=== PATIENT | female | born 1930 | race African-American/Black ===

== ENCOUNTER 2016-10-22 17:22 | Emergency (ER) | payer MEDICARE, BC ==
[~2016-10-22] VITALS: Ht 170.2 cm; Wt 71.3 kg
[~2016-10-22 17:22] MED LIST: ALPR.25 PO; APIX2.5T PO; ASPI1TAB69 PO; ASPI325T PO; CARV12.52 PO; CARV6.25 PO; CINA30 PO; CLON.1 PO; DOCU100C PO; ECOT81TA2 PO; LISI-363 PO; LORTA5 PO; MEGE40SU PO; METO100T9 PO; NEPHTAB3 PO; NEXI40CA PO; NITR2OIN CHEST; PLAV75TA29 PO; SEVEL800 PO; SYNT50TA PO; THERTAB17 PO; TRAM-492 PO; TRAV0.00 EACH EYE; VIIB20TA PO
[2016-10-22] MEDS ORDERED: SODIUM CHLORIDE 0.9% FLUSH 10 ML FLUSH IVF PRN (18:00)
--- NOTE | 2016-10-22 18:01 | PD ---
HPI Chief Complaint: Abnormal Results Time Seen by Provider: 18:01 Travel History International Travel<30 days: No Contact w/Intl Traveler<30days: No Traveled to known affect area: No History of Present Illness HPI 86-year-old elderly female presents to the emergency department for evaluation of low hemoglobin. The patient was sent from her nursing facility for low hemoglobin found at her dialysis yesterday. Patient had recent admission to the hospital in September. She did have a low hemoglobin at that time is felt to be anemia of chronic disease according to the notes. Hemoglobin is 5.6 according to paperwork. The patient reports mild shortness of breath, but denies any other complaints. She is pleasantly confused. The patient is on dialysis for chronic kidney disease. She denies any fevers or chills. No headache. No chest pain. No abdominal pain. No nausea, vomiting, diarrhea. Patient denies any rectal bleeding or dark tarry stools. PFSH Past Medical History Anemia: Yes Arthritis: Yes Asthma: No Blood Disorders: No Anxiety: Yes Depression: Yes Heart Rhythm Problems: Yes Cancer: No Cardiac Catheterization: Yes (X3) Cardiovascular Problems: Yes High Cholesterol: No Chest Pain: Yes Congestive Heart Failure: Yes COPD: No Coronary Artery Disease: Yes Diabetes: No Endocrine: No Gastrointestinal Disorders: Yes (HEART BURN) GERD: Yes Genitourinary: Yes (ESRD - ON DIALYSIS) Hypertension: Yes Immune Disorder: No Implanted Vascular Access Dvce: Yes Musculoskeletal: Yes (LEFT HIP) Neurologic: Yes Psychiatric: Yes Reproductive: No Respiratory: No Integumentary: Yes (CELLULITIS L ARM) Immunizations Current: Yes Migraines: Yes Pneumonia: Yes Renal Failure: Yes Sleep Apnea: Yes (HAD CPAP IN PAST) Thyroid Disease: No Influenza Vaccination: Yes ?: Not : 4 Para: 0 Past Surgical History Abdominal Surgery: Yes Appendectomy: Yes Arteriovenous Shunt: Yes (RUE) Body Medical Devices: 3 CARDIAC STENTS, KIDNEY STENT, HX R CHEST DIALYSIS CATH Coronary Stent: Yes (X3) Eye Surgery: Yes (L CATARACT REMOVED) Genitourinary Surgery: Yes (STONES REMOVED, L KIDNEY STENT X3) Gynecologic Surgery: Yes (HYSTERECTOMY, KIDNEY STONE REMOVAL) Hysterectomy: Yes Joint Replacement: Yes (BILAT TOTAL HIP, BILAT TOTAL KNEE) Oral Surgery: Yes Tonsillectomy: Yes Other Surgery: Yes Social History Alcohol Use: Yes (RARE) Tobacco Use: No (QUIT 45 YEARS AGO) Substance Use: No Allergies-Medications (Allergen,Severity, Reaction): Coded Allergies: Dilaudid (Verified Allergy, Severe, ANAPHYLACTIC, 08/17/16) Morphine (Verified Allergy, Severe, ANAPHYLACTIC, 08/17/16) *MDRO Multi-Drug Resistant Organism (Verified Adverse Reaction, Unknown, ) 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 Reported Meds & Prescriptions Reported Meds & Active Scripts Active Plavix (Clopidogrel Bisulfate) 75 Mg Tab 75 Mg PO DAILY Reported Xanax (Alprazolam) 0.25 Mg Tab 0.25 Mg PO BID Xanax (Alprazolam) 0.25 Mg Tab 0.25 Mg PO Q4H PRN Ultram (Tramadol HCl) 50 Mg Tab 50 Mg PO BID Nitro-Bid Topical (Nitroglycerin) 2 % Oint 2 Inch CHEST Q6H Nephro-Shelbie (B-Complex W/ C & Folic Acid) 1 Tab 1 Tab PO DAILY Renvela (Sevelamer Carbonate) 800 Mg Tab 800 Mg PO TID Carvedilol 12.5 Mg Tab 12.5 Mg PO Q12HR Thera-M (Multiple Vitamins W/ Minerals) 1 Tab 1 Tab PO DAILY Docusate Sodium 100 Mg Cap 100 Mg PO BID Eliquis (Apixaban) 2.5 Mg Tab 2.5 Mg PO BID Aspirin 81 Mg Tabdr 81 Mg PO DAILY Travatan Z Opth Drops (Travoprost) 0.004 % Soln 1 Drop EACH EYE HS PRN Review of Systems Except as stated in HPI: all other systems reviewed are Neg Physical Exam Narrative GENERAL: Well-nourished, well-developed elderly female patient, afebrile. SKIN: Focused skin assessment warm/dry. HEAD: Normocephalic. Atraumatic. EYES: No scleral icterus. No injection or drainage. NECK: Supple, trachea midline. No JVD or lymphadenopathy. CARDIOVASCULAR: Regular rate and rhythm without murmurs, gallops, or rubs. RESPIRATORY: Breath sounds equal bilaterally. No accessory muscle use. Lungs sounds are clear to auscultation. GASTROINTESTINAL: Abdomen soft, non-tender, nondistended. MUSCULOSKELETAL: No cyanosis, or edema. RECTAL EXAM: No masses or tenderness, stool is brown. Rectal exam was done with nurse at bedside. Hemoccult is positive. Data Data Last Documented VS Vital Signs Date Time Temp Pulse Resp B/P Pulse Ox O2 Delivery O2 Flow Rate FiO2 10/22/16 22:00 98.6 71 16 132/63 100 10/22/16 19:00 Nasal Cannula 2 Orders Electrocardiogram (10/22/16 17:59) Complete Blood Count With Diff (10/22/16 17:59) Comprehensive Metabolic Panel (10/22/16 17:59) Magnesium (Mg) (10/22/16 17:59) Act Partial Throm Time (Ptt) (10/22/16 17:59) Prothrombin Time / Inr (Pt) (10/22/16 17:59) Urinalysis - C+S If Indicated (10/22/16 17:59) Chest, Single Ap (10/22/16 17:59) Ecg Monitoring (10/22/16 17:59) Iv Access Insert/Monitor (10/22/16 17:59) Oximetry (10/22/16 17:59) Sodium Chloride 0.9% Flush (Ns Flush) (10/22/16 18:00) Type And Screen (10/22/16 17:59) Creatine Kinase (Cpk) (10/22/16 18:02) Troponin I (10/22/16 18:02) Pantoprazole Inj (Protonix Inj) (10/22/16 18:45) Pantoprazole Inj (Protonix Inj) (10/22/16 18:45) Urine Culture (10/22/16 18:40) Red Blood Cells (Rbc) (10/22/16 20:05) Blood Product Administration .UPON TRANSFUSION (10/22/16 20:05) Sodium Chlor 0.9% 250 Ml Inj (Ns 250 Ml (10/22/16 20:15) Ceftriaxone Inj (Rocephin Inj) (10/22/16 23:00) Labs Laboratory Tests Test 10/22/16 10/22/16 10/22/16 18:15 18:40 20:05 White Blood Count 10.0 TH/MM3 Red Blood Count 2.01 MIL/MM3 Hemoglobin 6.4 GM/DL Hematocrit 19.1 % Mean Corpuscular Volume 95.1 FL Mean Corpuscular Hemoglobin 31.7 PG Mean Corpuscular Hemoglobin 33.3 % Concent Red Cell Distribution Width 19.0 % Platelet Count 242 TH/MM3 Mean Platelet Volume 7.7 FL Neutrophils (%) (Auto) 76.2 % Lymphocytes (%) (Auto) 11.6 % Monocytes (%) (Auto) 7.7 % Eosinophils (%) (Auto) 3.6 % Basophils (%) (Auto) 0.9 % Neutrophils # (Auto) 7.6 TH/MM3 Lymphocytes # (Auto) 1.2 TH/MM3 Monocytes # (Auto) 0.8 TH/MM3 Eosinophils # (Auto) 0.4 TH/MM3 Basophils # (Auto) 0.1 TH/MM3 CBC Comment AUTO DIFF Differential Comment AUTO DIFF CONFIRMED Platelet Estimate NORMAL Platelet Morphology Comment NORMAL Prothrombin Time 9.4 SEC Prothromb Time International 0.9 RATIO Ratio Activated Partial 24.6 SEC Thromboplast Time Sodium Level 137 MEQ/L Potassium Level 4.3 MEQ/L Chloride Level 100 MEQ/L Carbon Dioxide Level 28.7 MEQ/L Anion Gap 8 MEQ/L Blood Urea Nitrogen 30 MG/DL Creatinine 4.30 MG/DL Estimat Glomerular Filtration 12 ML/MIN Rate Random Glucose 80 MG/DL Calcium Level 9.2 MG/DL Magnesium Level 2.5 MG/DL Total Bilirubin 0.5 MG/DL Aspartate Amino Transf 18 U/L (AST/SGOT) Alanine Aminotransferase 13 U/L (ALT/SGPT) Alkaline Phosphatase 154 U/L Total Creatine Kinase 69 U/L Troponin I 0.23 NG/ML Total Protein 6.9 GM/DL Albumin 2.8 GM/DL Blood Type O NEGATIVE Antibody Screen NEGATIVE Urine Color DARK-YELLOW Urine Turbidity CLEAR Urine pH 7.0 Urine Specific Mckenna 1.016 Urine Protein 100 mg/dL Urine Glucose (UA) NEG mg/dL Urine Ketones NEG mg/dL Urine Occult Blood MOD Urine Nitrite POS Urine Bilirubin NEG Urine Urobilinogen LESS THAN 2.0 MG/DL Urine Leukocyte Esterase SMALL Urine RBC 38 /hpf Urine WBC 22 /hpf Urine Squamous Epithelial <1 /hpf Cells Urine Bacteria OCC /hpf Microscopic Urinalysis Comment CULTURE INDICATED Crossmatch Leukocyte-Reduced Red Blood Cells Blood Bank Comment [facility] Medical Decision Making Medical Screen Exam Complete: Yes Emergency Medical Condition: Yes Medical Record Reviewed: Yes Interpretation(s) chest x-ray - CONCLUSION: 1. Mild enlargement of the cardiac silhouette. 2. Widening of the right paratracheal region likely secondary to tortuous vessels. Differential Diagnosis GI bleed versus anemia of chronic disease versus electrolyte abnormality versus dehydration Narrative Course 86-year-old elderly female presents to the emergency department for hemoglobin of 5.6. Patient is Hemoccult positive on my exam. EKG, CBC, CMP, magnesium, CK , Troponin, PTT, PTT/INR, UA, type and screen are ordered and pending. Patient is given 80 mg of Protonix IV and started on a Protonix drip. EKG shows sinus rhythm, heart rate 73, no acute ST changes. CBC shows hemoglobin 6.4, hematocrit 19.1. CMP shows BUN 30, creatinine 4.30. Magnesium is 2.5. CK is 69. Troponin is 0.23. Coags are unremarkable. Ua shows positive nitrate, small leukocyte esterase, 22 WBC. Chest x-ray shows mild enlargement of the cardiac silhouette; widening of the right paratracheal region likely secondary to tortuous vessels. Patient's family member is at bedside and states her radio station operator is Dr. Hewitt. Dr. Hewitt and Dr. Damon are paged. I spoke to Dr. Damon who states that he would like the patient to take either 20 ,000 units of Procrit and sent back to long-term or if nephrology is okay with a cure unit of packed red blood cells. The patient is on hospice and he would like the patient to be transferred back to nursing facility. He is aware of elevated troponin and guiac and is not considered at this time due to end- stage renal disease, anemia. He is also aware of guiac positive. Patient has no chest pain. I spoke to Dr. Tyler gas pumping station helper for Dr. Hewitt who is familiar with the patient. He states that the patient can get 1 unit of packed red blood cells and return to the nursing facility. The patient is due to have dialysis tomorrow. 1 unit packed red blood cells is ordered. Daughter is at bedside who agrees with plan. The patient will be transferred back to nursing facility after packed red blood cells. Patient will be given RX for Keflex for UTI. She is given Rocephin 1 gm IV here. [facility] Point of Care Internal Pos. & Neg. Controls: Passed Fecal Specimen Occult Blood: Positive Diagnosis Primary Impression: Severe anemia Additional Impression: Urinary tract infection Qualified Code: N30.00 - Acute cystitis without hematuria Referrals: Ramesh Hewitt MD, Richard D. MD Patient Instructions: Anemia (ED), General Instructions Additional Instructions: Receive dialysis tomorrow at your normal scheduled time. Follow-up with Dr. Damon. Return to the emergency department for any acute worsening of symptoms. Med/Other Pt SpecificInfo: Prescription(s) given, No Change to Meds Scripts Cephalexin (Keflex)500 Mg Dqu199 Mg PO Q12H 7 Days Ref 0 Prov:Sharmin Azevedo 10/22/16 Disposition: 01 DISCHARGE HOME Condition: Stable Sharmin Azevdeo October 22, 2016 18:01
[2016-10-22 18:21] VITALS: BP 116/56; PULSE 68; RESP 20; TEMP 98.5; O2SAT 100; O2SAT 95
[2016-10-22] MEDS ORDERED: ULTR50TA5 PO (18:36)
[2016-10-22] MEDS ORDERED: ALPR.25 PO ×2 (18:36)
[2016-10-22] MEDS ORDERED: PANTOPRAZOLE INJ 80 MG in SODIUM CHLORIDE 0.9% INJ 35 ML IV ONE (18:45)
[2016-10-22 18:55] LABS: BACTERIA, URINE OCC /hpf; BLOOD, URINE MOD (NEG); COMMENT (UR) CULTURE INDICATED; CULTURE IF INDICATED CULTURE INDICATED; GLUCOSE,URINE NEG (NEG); KETONE, URINE NEG (NEG); NITRITE,URINE POS (NEG); SQUAMOUS EPITHELIAL CELL URINE <1 /hpf (0-5); URINE COLOR DARK-YELLOW (YELLW/STRAW)
[2016-10-22 19:00] VITALS: BP 139/65; PULSE 67; RESP 16; O2SAT 100
[2016-10-22 19:03] LABS: AUTOMATED NEUTROPHIL # 7.6 TH/MM3 (1.8-7.7); BASOPHIL # 0.1 TH/MM3 (0-0.2); BASOPHIL % 0.9 % (0.0-2.0); EOSINOPHIL # 0.4 TH/MM3 (0-0.4); EOSINOPHIL % 3.6 % (0.0-4.0); LYMPH % 11.6 % (9.0-44.0); LYMPHOCYTE # 1.2 TH/MM3 (1.0-4.8); MEAN CELL VOLUME 95.1 FL (80.0-100.0); MEAN CORPUSCULAR HEMOGLOBIN 31.7 PG (27.0-34.0); MEAN CORPUSCULAR HGB CONC 33.3 % (32.0-36.0); MONO % 7.7 % (0.0-8.0); NEUT % 76.2 % (16.0-70.0); PLATELET COUNT 242 TH/MM3 (150-450); RED BLOOD COUNT 2.01 MIL/MM3 (4.00-5.30)
[2016-10-22 19:05] LABS: APTT (PATIENT) 24.6 SEC (24.3-30.1); HEMO FLAGS AUTO DIFF; INTERNATIONAL NORMALIZED RATIO 0.9 RATIO; PROTHROMBIN TIME - PATIENT 9.4 SEC (9.8-11.6)
[2016-10-22 19:07] LABS: HEMATOCRIT 19.1 % (35.0-46.0)
--- NOTE | 2016-10-22 19:12 | RADRPT ---
EXAM DATE/TIME: 10/22/2016 18:27 [facility] COMPARISON: CT SOFT TISSUE NECK W CONTRAST, October 12, 2016, 9:16. CHEST SINGLE AP, October 11, 2016, 4:34. INDICATIONS : Shortness of breath and palpitations. MEDICAL HISTORY : Hypertension. Congestive heart failure. Renal failure, acute.COPD, SURGICAL HISTORY : Coronary artery stent. ENCOUNTER: Initial ACUITY: 1 day PAIN SCORE: 0/10 LOCATION: Bilateral chest FINDINGS: The heart size is enlarged. The lungs are grossly clear. There does appear to be elev ation of the left hemidiaphragm. There is increased soft tissue density seen in the right paratrache al region. This appears to be related to tortuous vessels seen in the upper chest on the CT of the s oft tissue neck. The costophrenic angles are clear. CONCLUSION: 1. Mild enlargement of the cardiac silhouette. 2. Widening of the right paratracheal region likely secondary to tortuous vessels. Jemal Cueva MD on October 22, 2016 at 19:05 Board Certified Radiologist. This report was verified electronically.
[2016-10-22 19:14] LABS: ANION GAP 8 MEQ/L (5-15); AST (GOT) 18 U/L (15-37); BICARBONATE 28.7 MEQ/L (21.0-32.0); BLOOD UREA NITROGEN 30 MG/DL (7-18); CHLORIDE 100 MEQ/L (98-107); GLOMERULAR FILTRATION RATE 12 ML/MIN (>89); MAGNESIUM 2.5 MG/DL (1.5-2.5); POTASSIUM 4.3 MEQ/L (3.5-5.1); SODIUM (NA) 137 MEQ/L (136-145)
[2016-10-22] MEDS: PANTOPRAZOLE INJ 80 MG in SODIUM CHLORIDE 0.9% INJ 100 ML IV SCH (19:14)
[2016-10-22 19:18] LABS: ALKALINE PHOSPHATASE 154 U/L (45-117); ALT (GPT) 13 U/L (10-53); TOTAL BILIRUBIN ADULT 0.5 MG/DL (0.2-1.0)
[2016-10-22 19:38] LABS: PLATELET ESTIMATE SMEAR NORMAL (NORMAL); PLATELET MORPHOLOGY NORMAL (NORMAL); SCAN/DIFF AUTO DIFF CONFIRMED
[2016-10-22] MEDS ORDERED: SODIUM CHLOR 0.9% 250 ML INJ 250 ML IV ONE (20:15)
[2016-10-22 21:50] VITALS: BP 131/60; PULSE 69; RESP 16; TEMP 98.5; O2SAT 100
[2016-10-22 22:00] VITALS: BP 132/63; PULSE 71; RESP 16; TEMP 98.6; O2SAT 100
[2016-10-22] MEDS ORDERED: CEPH-460 PO (22:57)
[2016-10-22] MEDS ORDERED: cefTRIAXone INJ 1,000 MG in SODIUM CHLORIDE 0.9% INJ 100 ML IV ONE (23:00)
[2016-10-22 23:49] VITALS: BP 131/61; PULSE 80; RESP 18; O2SAT 100
[2016-10-23] MEDS: PANTOPRAZOLE INJ 80 MG in SODIUM CHLORIDE 0.9% INJ 100 ML IV SCH (04:45)
--- NOTE | 2016-10-23 15:36 | EKG ---
Date Performed: 10/22/2016 Time Performed: 18:33:55 PTAGE: 86 years EKG: Sinus rhythm MARKED LEFT AXIS DEVIATION MODERATE INTRAVENTRICULAR CONDUCTION DELAY NONSPECIFIC T-WAVE ABNORMALITY ABNORMAL ECG PREVIOUS TRACING : 10/02/2016 07.12 DOCTOR: Duong Su Interpretating Date/Time 10/23/2016 15:31:30
== END 2016-10-23 06:08 | disposition home or self-care (01) ==
LOC: NEPC 17:22 → MERGE 17:22 → NEPD 10-23 06:08
DX: D64.9 Anemia, unspecified (principal); N39.0 Urinary tract infection, site not specified; R06.02 Shortness of breath; I12.0 Hypertensive chronic kidney disease with stage 5 chronic kidney disease or end stage renal disease; R94.31 Abnormal electrocardiogram [ECG] [EKG]
CPT/HCPCS: 36430; 71010; 80053; 81001; 82550; 83735; 84484; 85025; 85610; 85730; 86850; 86900; 86901; 86920; 87086; 93005; 96365; 96375; 99284; C9113; J0696; J7050; P9016